=== PATIENT | male | born 2000 | race Caucasian/White ===

== ENCOUNTER 2019-10-28 11:15 | Emergency (ER) | payer SELFPAY | END 2019-10-28 14:38 | disposition home or self-care (01) | LOC: ERS 11:15 | DX: R56.9 Unspecified convulsions (principal); Z79.899 Other long term (current) drug therapy | CPT/HCPCS: 93005 ==

== ENCOUNTER 2021-02-11 16:14 | Observation (INO) | payer SELFPAY ==
[2021-02-11] MEDS ORDERED: Lorazepam 2 MG/ML VIAL ONE (16:16)
[2021-02-11] MEDS ORDERED: levETIRAcetam 500 MG/100 ML PREMIX BAG ONE (16:21)
[2021-02-11] MEDS ORDERED: levETIRAcetam in NS 100 ML ONE ×2 (16:22→18:04)
[2021-02-11] MEDS ORDERED: Ondansetron PF 4 MG/2 ML Vial ONE (16:26)
[2021-02-11 16:59] LABS: Hemoglobin 16.5 g/dL (14.0-18.0); Mean Corpuscular HGB CONC 32.5 g/dL (32.0-36.0); Mean Corpuscular Hemoglobin 29.2 pg (27.0-31.0); Mean Corpuscular Volume 89.7 fL (78.0-98.0); Mean Platelet Volume 8.2 fL (7.4-10.4); Platelet Count 367 thou/uL (130-400); RBC Distribution Width 10.8 % (11.5-14.5); Red Blood Cell (RBC) Count 5.66 mill/uL (4.70-6.10); White Blood Cell (WBC) Count 18.4 thou/uL (4.8-10.8)
[2021-02-11 17:22] LABS: ALT (SGPT) 37 U/L (8-55); AST (SGOT) 25 U/L (5-34); Albumin 4.7 g/dL (3.5-5.0); Alkaline Phosphatase 72 U/L (40-110); BUN (Urea Nitrogen) 10 mg/dL (8.9-20.6); Bilirubin, Total 0.5 mg/dL (0.2-1.2); Calc. Creatinine Clearance 162 mL/min (70-130); Calcium 9.6 mg/dL (7.8-10.44); Chloride 107 mmol/L (98-107); Globulin 2.8 g/dL (2.4-3.5); Glucose 168 mg/dL (70-105); Potassium 4.3 mmol/L (3.5-5.1); Protein, Total 7.5 g/dL (6.0-8.3); Sodium 141 mmol/L (136-145)
[2021-02-11 17:24] LABS: Band 1 % (5-11); Eosinophils 1 % (0-10); Lymphocytes 35 % (21-51); MDiff Complete? YES; Metamyelocyte 1 % (0-0); Monocytes 5 % (0-10); Myelocyte 2 % (0-0); Neutrophil 41 % (42-75); Platelet Morphology Comment Appears Adequate; RBC Morphology Normal; Reactive Lymphocytes 13 % (0-10)
[2021-02-11 17:28] LABS: Carbon Dioxide Less than 8 mmol/L (22-29)
[2021-02-11 17:32] LABS: Acetaminophen Less than 6.0 mcg/mL (10.0-30.0); Alcohol Less than 10 mg/dL (Less than 10); CK (CPK) 78 U/L (30-200); Salicylate Less than 8.0 mg/dL (15.0-30.0)
[2021-02-11] MEDS ORDERED: Fentanyl 100 MCG/2 ML VIAL ONE (17:40)
[2021-02-11] MEDS ORDERED: lamoTRIgine 100 MG TAB PO SCH ×2 (18:00→20:00)
[2021-02-11 18:17] LABS: Bilirubin Negative (Negative); Blood, Urine 1+ (Negative); Clarity Clear (Clear); Glucose, Urine (Dipstick) Normal (Negative); Ketone, Urine 10 mg/dL (Negative); Leukocyte Negative Leu/uL (Negative); Nitrite Negative (Negative); Protein, Urine (Dipstick) 30 mg/dL (Neg-Trace); Specific Gravity, Urine 1.015 (1.002-1.036); Squamous Epithelial 0-3 HPF (0-3); Urobilinogen Normal mg/dL (Less than 2); WBC/HPF None Seen HPF (0-3); pH, Urine 5.5 (5.0-9.0)
[2021-02-11 18:18] LABS: RBC/HPF 0-3 HPF (0-3)
[2021-02-11 18:22] LABS: Amphetamine Not Detected (NotDetected); Barbiturates Screen Not Detected (NotDetected); Benzodiazepine Screen Not Detected (NotDetected); Cocaine Metabolite Screen Not Detected (NotDetected); Methadone Not Detected (NotDetected); Methamphetamine Not Detected (NotDetected); Opiate Screen Not Detected (NotDetected); Oxycodone Screen Not Detected (NotDetected); Phencyclidine (PCP) Not Detected (NotDetected); THC/Cannabinoid Screen Not Detected (NotDetected); Tricyclic Screen Not Detected (NotDetected)
[2021-02-11 23:37] VITALS: BMI 38.5
[2021-02-11] MEDS: Acetaminophen 325 MG TAB PO PRN (23:51)
[2021-02-12 07:19] LABS: ALT (SGPT) 34 U/L (8-55); AST (SGOT) 26 U/L (5-34); Albumin 4.2 g/dL (3.5-5.0); Alkaline Phosphatase 63 U/L (40-110); Anion Gap 10 mmol/L (10-20); BUN (Urea Nitrogen) 8 mg/dL (8.9-20.6); Bilirubin, Total 0.8 mg/dL (0.2-1.2); Calc. Creatinine Clearance 165 mL/min (70-130); Calcium 8.9 mg/dL (7.8-10.44); Carbon Dioxide 26 mmol/L (22-29); Chloride 110 mmol/L (98-107); Globulin 2.2 g/dL (2.4-3.5); Glucose 85 mg/dL (70-105); Protein, Total 6.4 g/dL (6.0-8.3); Sodium 142 mmol/L (136-145)
[2021-02-12] MEDS: Acetaminophen 325 MG TAB PO PRN (08:10)
[2021-02-12] MEDS ORDERED: lamoTRIgine 100 MG TAB PO SCH ×2 (09:00)
[2021-02-12] MEDS ORDERED: levETIRAcetam 500 MG TAB PO SCH (09:00)
[2021-02-12 12:21] VITALS: BP 110/55; TEMP 97.6
[2021-02-12 19:54] LABS: SARS-CoV-2 PCR by NAA Not Detected (NotDetected)
== END 2021-02-12 16:00 | disposition home or self-care (01) ==
LOC: ERS 16:14 → 3SE 18:38
PROVIDERS: ADMIT Student in an Organized Health Care Education/Training Program; ATTEND Student in an Organized Health Care Education/Training Program
DX: G40.409 Other generalized epilepsy and epileptic syndromes, not intractable, without status epilepticus (principal); S01.512A Laceration without foreign body of oral cavity, initial encounter; D72.829 Elevated white blood cell count, unspecified; R79.0 Abnormal level of blood mineral; Z20.822 Contact with and (suspected) exposure to COVID-19; Z91.14 Patient's other noncompliance with medication regimen; Z88.8 Allergy status to other drugs, medicaments and biological substances; Z87.820 Personal history of traumatic brain injury; J45.909 Unspecified asthma, uncomplicated; Z79.899 Other long term (current) drug therapy; X58.XXXA Exposure to other specified factors, initial encounter
CPT/HCPCS: 36415; 70450; 71045; 80053; 80175; 80177; 80306; 80307; 81003; 81015; 82550; 85025; 96365; 96366; 96372; 96375; G0378; J1953; J2060; J2405; J3010; U0003; U0005

== ENCOUNTER 2022-02-07 11:08 | Emergency (ER) | payer SELFPAY ==
[2022-02-07] MEDS ORDERED: cefTRIAXone\\ROCEPHIN 500 MG VIAL ONE (13:10)
[2022-02-07] MEDS ORDERED: Lidocaine 1% MPF 2 ML VIAL ONE (13:10)
[2022-02-08 15:32] LABS: Chlam.trachomatis by PCR,Urine DETECTED (NotDetected)
== END 2022-02-07 13:31 | disposition home or self-care (01) ==
LOC: ERS 11:08
DX: R30.0 Dysuria (principal)
CPT/HCPCS: 87491; 87591; 96372; 99283; J0696

== ENCOUNTER 2022-12-18 23:36 | Emergency (ER) | payer SELFPAY ==
[2022-12-19 15:33] LABS: Chlam.trachomatis by PCR,Urine Not Detected (NotDetected); GC N.gonorrhoeae PCR,UrineVOID Not Detected (NotDetected)
== END 2022-12-19 00:29 | disposition home or self-care (01) ==
LOC: ERS 23:36
DX: Z11.3 Encounter for screening for infections with a predominantly sexual mode of transmission (principal)
CPT/HCPCS: 87491; 87591; 99283

== ENCOUNTER 2023-02-01 02:43 | Emergency (ER) | payer SELFPAY | END 2023-02-01 03:02 | disposition home or self-care (01) | LOC: ERS 02:43 | DX: Z76.0 Encounter for issue of repeat prescription (principal) | CPT/HCPCS: 99281 ==

== ENCOUNTER 2023-06-29 10:35 | Emergency (ER) | payer SELFPAY ==
[2023-06-29] MEDS ORDERED: Acetaminophen 500 MG TAB ONE (11:48)
[2023-06-29] MEDS ORDERED: Ibuprofen 200 MG TAB ONE (11:49)
[2023-06-29] MEDS ORDERED: Ondansetron ODT 4 MG TAB ONE (11:51)
[2023-06-29 12:41] LABS: SARS-CoV-2 NAA Rapid Test Not Detected (NotDetected)
== END 2023-06-29 13:46 | disposition home or self-care (01) ==
LOC: ERS 10:35
DX: J11.1 Influenza due to unidentified influenza virus with other respiratory manifestations (principal); Z87.891 Personal history of nicotine dependence
CPT/HCPCS: 99284; Q0162

== ENCOUNTER 2023-08-03 01:29 | Emergency (ER) | payer SELFPAY ==
[2023-08-03] MEDS ORDERED: levETIRAcetam 500 MG TAB ONE (02:24)
== END 2023-08-03 02:28 | disposition home or self-care (01) ==
LOC: ERS 01:29
DX: G40.909 Epilepsy, unspecified, not intractable, without status epilepticus (principal); Z76.0 Encounter for issue of repeat prescription; Z87.891 Personal history of nicotine dependence; Z79.899 Other long term (current) drug therapy
CPT/HCPCS: 99283

== ENCOUNTER 2023-08-16 14:29 | Emergency (ER) | payer SELFPAY ==
[2023-08-16] MEDS ORDERED: Rocuronium Bromide 10 MG/ML (10ML VIAL) ONE (15:56)
[2023-08-16] MEDS ORDERED: PROPOFOL 200 MG/20 ML VIAL ONE (15:56)
[2023-08-16] MEDS ORDERED: Midazolam HCl 2 mg/2 ml Vial ONE (16:02)
[2023-08-16] MEDS ORDERED: Propofol 1,000 MG/100 ML VIAL IV ONE ×2 (16:02→18:29)
[2023-08-16 16:04] LABS: #Basophils 0.1 thou/uL (0.0-0.2); #Eosinphils 0.1 thou/uL (0.0-0.7); #Neutrophils 6.9 thou/uL (1.40-6.50); %Basophils 0.8 % (0.0-1.0); %Eosinophils 0.9 % (0.0-10.0); %Lymphocytes 28.5 % (21.0-51.0); %Monocytes 8.6 % (0.0-10.0); %Neutrophils 59.7 % (42.0-75.0); Hemoglobin 17.8 g/dL (14.0-18.0); Mean Corpuscular HGB CONC 34.2 g/dL (32.0-36.0); Mean Corpuscular Hemoglobin 29.3 pg (27.0-31.0); Mean Corpuscular Volume 85.7 fl (78.0-98.0); Platelet Count 329 10x3/uL (130-400); RBC Distribution Width 11.8 % (11.5-14.5); Red Blood Cell (RBC) Count 6.07 mill/uL (4.70-6.10); White Blood Cell (WBC) Count 11.6 10x3/uL (4.8-10.8)
[2023-08-16 16:35] LABS: Actual Bicarbonate (HCO3a) 19.2 mEq/L (22-28); Analyzer IN Cardio ER; Base Excess (BEa) -6.3 mEq/L (-2.0 to +3.0); CO2 Tension 38.5 mmHg (35.0-45.0); Calcium, Ionized (arterial) 1.23 mmol/L (1.12-1.30); Carboxyhemoglobin (COHb) 0.1 gm% (0.0-3.0); Hematocrit-ABG 52 % (42.0-52.0); Hemoglobin (Hb) 17.6 g/dL (14.0-18.0); pH, Arterial 7.315 (7.35-7.45)
[2023-08-16 16:37] LABS: ALT (SGPT) 76 U/L (8-55); AST (SGOT) 56 U/L (5-34); Alkaline Phosphatase 79 U/L (40-110); Anion Gap 29 mmol/L (10-20); BUN (Urea Nitrogen) 14 mg/dL (8.9-20.6); Bilirubin, Total 0.8 mg/dL (0.2-1.2); Calc. Creatinine Clearance 0 mL/min (70-130); Calcium 9.5 mg/dL (7.8-10.44); Carbon Dioxide 10 mmol/L (22-29); Chloride 104 mmol/L (98-107); Estimated GFR 90; Globulin 3.2 g/dL (2.4-3.5); Glucose 120 mg/dL (70-105); Potassium 4.9 mmol/L (3.5-5.1); Protein, Total 8.2 g/dL (6.0-8.3); Sodium 138 mmol/L (136-145)
[2023-08-16 16:37] LABS: Puncture Site Right Radial
[2023-08-16 16:38] LABS: ALV-art Gradient 527.875 mmHg (0-20)
[2023-08-16] MEDS ORDERED: fentaNYL 50 mcg/mL 1 mL Vial ONE ×2 (16:52→17:38)
[2023-08-16] MEDS ORDERED: LORazepam 2 MG/ML SYR.(CARPUJECT) ONE (16:53)
[2023-08-16 16:55] LABS: Critical Call Chem-Lactate NUR.LH8 @1655
[2023-08-16] MEDS ORDERED: levETIRAcetam 500 MG (5 mL) VIAL ONE (17:09)
[2023-08-16 17:25] LABS: Bacteria/HPF None Seen HPF (None Seen); Bilirubin Negative (Negative); Blood, Urine 2+ (Negative); CAUTI Indications for Culture Alt mental st,lethar; Clarity Clear (Clear); Glucose, Urine (Dipstick) Normal (Negative); Ketone, Urine 10 mg/dL (Negative); Leukocyte Negative Leu/uL (Negative); Nitrite Negative (Negative); Protein, Urine (Dipstick) 100 mg/dL (Neg-Trace); RBC/HPF 0-3 HPF (0-3); Specific Gravity, Urine 1.019 (1.002-1.036); Squamous Epithelial None Seen HPF (0-3); Urobilinogen Normal mg/dL (Less than 2); WBC/HPF 0-3 HPF (0-3)
[2023-08-16 17:27] LABS: Sperm/HPF 2+ HPF (None Seen); Urine Culture Reflex No No
== END 2023-08-16 18:35 ==
LOC: ERS 14:29
DX: G40.901 Epilepsy, unspecified, not intractable, with status epilepticus (principal); F17.290 Nicotine dependence, other tobacco product, uncomplicated
CPT/HCPCS: 31500; 36415; 36416; 51702; 70450; 71045; 80053; 80177; 81001; 82805; 83605; 85025; 93005; 94002; 94760; 96361; 96365; 96366; 96374; 96375; 96376; 99292; J1953; J2060; J2250; J2704; J3010

== ENCOUNTER 2025-02-27 10:22 | Emergency (ER) | payer SELFPAY ==
[2025-02-27] MEDS ORDERED: HYDROcodone/Acetaminophen 10/325 mg Tablet ONE (11:00)
== END 2025-02-27 12:00 | disposition home or self-care (01) ==
LOC: ERS 10:22
DX: G40.909 Epilepsy, unspecified, not intractable, without status epilepticus (principal); S00.11XA Contusion of right eyelid and periocular area, initial encounter; S00.531A Contusion of lip, initial encounter; F17.290 Nicotine dependence, other tobacco product, uncomplicated; W18.30XA Fall on same level, unspecified, initial encounter; Z55.6 Problems related to health literacy
CPT/HCPCS: 36415; 70450; 70486; 72125; 80175; 80177

== ENCOUNTER 2025-04-21 15:46 | Emergency (ER) | payer SELFPAY | END 2025-04-21 16:49 | disposition home or self-care (01) | LOC: ERS 15:46 | DX: Z76.0 Encounter for issue of repeat prescription (principal) | CPT/HCPCS: 99281 ==

== ENCOUNTER 2025-05-20 08:57 | Emergency (ER) | payer SELFPAY ==
[2025-05-20 09:20] LABS: #Basophils 0.09 10x3/uL (0.0-0.2); #Eosinophils 0.25 10x3/uL (0.0-0.7); #Monocytes 0.68 10x3/uL (0.11-0.59); #Neutrophils 4.19 10x3/uL (1.40-6.50); %Basophils 1.0 % (0.0-1.0); %Eosinophils 2.8 % (0.0-10.0); %Lymphocytes 40.6 % (21.0-51.0); %Monocytes 7.7 % (0.0-10.0); %Neutrophils 47.4 % (42.0-75.0); Hematocrit 46.9 % (42.0-52.0); Hemoglobin 15.7 g/dL (14.0-18.0); Mean Corpuscular Hemoglobin 28.2 pg (27.0-31.0); Mean Corpuscular Volume 84.4 fL (78.0-98.0); Platelet Count 266 10x3/uL (130-400); Red Blood Cell (RBC) Count 5.56 mill/uL (4.70-6.10); White Blood Cell (WBC) Count 8.84 10x3/uL (4.8-10.8)
[2025-05-20 09:36] LABS: ALT (SGPT) 39 U/L (Less than 45); AST (SGOT) 40 U/L (11-34); Albumin 4.6 g/dL (3.1-4.5); Alkaline Phosphatase 63 U/L (40-110); Anion Gap 18 mmol/L (10-20); BUN (Urea Nitrogen) 8 mg/dL (8.9-20.6); Bilirubin, Total 0.6 mg/dL (0.3-1.2); Calc. Creatinine Clearance 0 mL/min (70-130); Calcium 9.6 mg/dL (7.8-10.44); Carbon Dioxide 21 mmol/L (22-29); Chloride 106 mmol/L (98-107); Globulin 2.4 g/dL (2.4-3.5); Glucose 86 mg/dL (70-105); Potassium 4.1 mmol/L (3.5-5.1); Sodium 141 mmol/L (136-145)
[2025-05-20] MEDS ORDERED: Acetaminophen 500 MG TAB ONE (10:35)
[2025-05-20] MEDS ORDERED: levETIRAcetam 500 MG (5 mL) VIAL ONE ×2 (10:44→11:56)
[2025-05-20 11:46] LABS: Bacteria/HPF None Seen HPF (None Seen); CAUTI Indications for Culture Immunosuppressed; Glucose, Urine (Dipstick) Normal (Negative); Leukocyte 25 Leu/uL (Negative); Protein, Urine (Dipstick) 20 mg/dL (Neg-Trace); RBC/HPF 0-3 HPF (0-3); Specific Gravity, Urine 1.014 (1.002-1.036); WBC/HPF 21-50 HPF (0-3)
[2025-05-20 11:48] LABS: Urine Culture Reflex Yes Yes
== END 2025-05-20 13:15 | disposition home or self-care (01) ==
LOC: ERS 08:57
DX: G40.909 Epilepsy, unspecified, not intractable, without status epilepticus (principal); F17.290 Nicotine dependence, other tobacco product, uncomplicated
CPT/HCPCS: 70450; 80053; 81001; 83605; 84146; 85025; 87086; 93005; 96374; 96375; 96376; J1953; J2060